=== PATIENT | male | born 1945 | race African-American/Black ===

== ENCOUNTER 2018-08-15 07:34 | Inpatient (IN) | payer MEDICARE, OTHER ==
[~2018-08-15] VITALS: Ht 180.3 cm; Wt 70.8 kg
[2018-08-15 07:35] VITALS: BP 122/57
[2018-08-15 08:15] LABS: ABSOLUTE LYMPHOCYTES 1.5 thou/uL (0.8-5.3); ABSOLUTE MONOCYTES 0.7 thou/uL (0.0-1.2); ABSOLUTE NEUTROPHILS 6.1 thou/uL (1.6-8.1); BASOPHILS 0.5 %; EOSINOPHILS 0.5 %; HEMATOCRIT 41.5 % (42.0-52.0); HEMOGLOBIN 13.3 gm/dL (14.0-18.0); LYMPHOCYTES 18.1 %; MCH 28.2 pg (26.0-34.0); MCHC 32.1 g/dL (28.0-37.0); MCV 87.8 fL (80.0-100.0); MONOCYTES 8.5 %; MPV 9.5 fl. (7.2-11.1); NUCLEATED RBCS 0 /100WBC; PLATELET COUNT* 255 thou/uL (150-400); POLYS 72.4 %; RBC 4.73 mil/uL (4.50-6.00); RDW-CV 14.3 % (10.5-14.5); WBC 8.4 thou/uL (4.0-11.0)
[2018-08-15 08:25] LABS: CALCIUM 9.2 mg/dL (8.5-10.1); CREATININE 0.9 mg/dL (0.6-1.3); POTASSIUM 4.7 mmol/L (3.5-5.1)
[2018-08-15 08:26] LABS: INR 1.1; PROTIME 11.2 Seconds (9.20-11.50)
[2018-08-15 08:30] LABS: ALBUMIN 3.2 g/dL (3.4-5.0); TOTAL BILIRUBIN 0.6 mg/dL (<0.1-1.0); TOTAL PROTEIN 7.2 g/dL (6.4-8.2)
[2018-08-15 09:20] LABS: URINE BILIRUBIN NEGATIVE (Negative); URINE BLOOD 2+ (Negative); URINE CLARITY CLEAR; URINE COLOR YELLOW; URINE GLUCOSE-RANDOM 3+ (Negative); URINE KETONES TRACE (Negative); URINE LEUKOCYTES-REFLEX NEGATIVE (Negative); URINE NITRITE-REFLEX NEGATIVE (Negative); URINE PROTEIN NEGATIVE (Negative); URINE SPECIFIC GRAVITY >= 1.030 (1.005-1.030); URINE UROBILINOGEN 0.2 E.U./dl (0.2-1.0)
[2018-08-15 09:26] LABS: BACTERIA-REFLEX 1-9 Few /HPF (None Seen); CASTS None Seen /LPF (None Seen); CRYSTALS None Seen /LPF (None Seen); MUCUS 4-6 Moderate strn/LPF (None Seen); SQUAMOUS 0-3 Few /LPF (0-3); URINE WBC-REFLEX 0-5 Rare /HPF (0-5)
[2018-08-15 13:00] VITALS: BP 134/61
[2018-08-15 13:01] VITALS: BP 128/54
--- NOTE | 2018-08-15 15:16 | EKG ---
[place] [address] ELECTROCARDIOGRAM REPORT Name: CADY SANDOVAL Room: [address] ADM IN [facility].#: [id number] Admission: 08/15/18 Attend Phys: Julius Marr MD Discharge: Date of : 41 Report #: [id number] THIS REPORT FOR: //name// [facility] ED Test Date: 2018-08-15 Test Time: 08:09:09 Pat Name: CADY SANDOVAL Department: Room: [facility] Gender: M Hone Operator: : 1945 Requested By: Migue Dunne Order Number: [id number] MD: Dakota Fitzgerald Measurements Intervals [employer] Rate: 76 P: 47 AL: 176 QRS: -1 QRSD: 88 T: 60 QT: 373 QTc: 420 Interpretive Statements Sinus rhythm No previous ECG available for comparison Electronically Signed On 08-15-2018 15:16:08 CDT by Dakota Fitzgerald [email or web address] <ELECTRONICALLY SIGNED> By: Dakota Fitzgerald MD, [facility] 08/15/18 1516 0809 8 Dakota Fitzgerald MD, FACC /EPI
--- NOTE | 2018-08-15 16:21 | NUR ---
PATIENT ADMITTED TO ROOM 304 FROM ER. ALERT AND ORIENTED X 4. C/O RIGHT ANKLE PAIN. PATIENT FALL RISK. BED ALARM ON FOR PATIENT SAFETY. NO SKIN BREAKDOWN NOTED. PATIENT WORK UP FOR TIA/CVA, NO DIFFICULTY WITH SWALLOW EVAL. FIRST DOSE OF ASPIRIN GIVEN PER ORDERS. PATIENT TO TRANSFER TO TELE ROOM 318 FOR STROKE PROTOCOL. NIH SCALE 5. ALL BELONGINGS SENT WITH PATIENT AND REPORT CALLED TO FERNY SIERRA.
[2018-08-15 18:00] VITALS: BP 143/62
--- NOTE | 2018-08-15 19:25 | NUR ---
PT RECEIVED FROM 3W AT 1600, ALERT AND ORIENTED X4. WENT FOR MRI AND US CAROTID, RECEIVED AT 1820. VSS. [facility] COMPLETED AND CHARTED. DAUGHTERS AT BEDSIDE. UPDATES PROVIDED.
[2018-08-15 19:40] VITALS: BP 138/63
[2018-08-16] VITALS: BP 127/56
--- NOTE | 2018-08-16 02:31 | NUR ---
RECIEVED REPORT AND ASSUMED CARE AT 1900. TECHNICIAN PREVENTATIVE MEDICINE IN PLACE. VITAL SIGNS STABLE. PT UP WITH ASSIST X 1 D/T RIGHT LEG WEAKNESS. HE DENIES ANY PAIN AT THIS TIME. ASSESSMENT COMPLETED AND CALL LIGHT WITHIN REACH. FALL PRECAUTIONS IN PLACE. HOURLY ROUNDING DONE AND ALL NEEDS MET. NURSING WILL CONTINUE TO MONITOR.
[2018-08-16 04:00] VITALS: BP 114/60
--- NOTE | 2018-08-16 06:25 | NUR ---
PT REFUSED MORNING LABS.
[2018-08-16 07:41] LABS: CHOLESTEROL 132 mg/dL (<200); HDL CHOLESTEROL 42 mg/dL (>40); LDL CHOLESTEROL 79 mg/dL (<100); SERUM ASSESSMENT Clear; TC:HDL 3.1 Ratio (Not establshd); TRIGLYCERIDE 57 mg/dL (<150); VLDL 11 mg/dL (<40)
[2018-08-16 08:00] VITALS: BP 121/60
--- NOTE | 2018-08-16 11:27 | NUR ---
Pt is A&O. Resides at [facility] in [place] and plans to return at ct. Pt states that he uses a walker for mobility. No other DME. Following.
--- NOTE | 2018-08-16 12:19 | NUR ---
ASSUMED PT CARE REPORT RECEIVED FROM NURSE. 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 TESTS DONE THIS AM. IV ABX GIVEN. PT ACCUCHECK 333 AT LUNCH TIME. [facility] [employer] CALLED TO REQUEST PT MEDICATION LIST. SPOKE WITH A NURSE WHO SAID THAT PT HAS BEEN REFUSING MEDICATIONS AT THE FACILITY SO PCP DC'D ALL PT MEDICATIONS. WAS MADE AWARE. WILL CONTINUE TO MONITOR PT
[2018-08-16 13:13] LABS: GLYCOHEMOGLOBIN (HGB A1C) 12.1 % (4.8-5.6)
[2018-08-16 14:36] VITALS: BP 127/62
--- NOTE | 2018-08-16 15:11 | 2DMMODE ---
[place] [address] 2 D/M-MODE ECHOCARDIOGRAM Name: CADY SANDOVAL Room: [address] IN [facility]#: [id number] Admission: 08/15/18 Attend Phys: Julius Marr, Discharge: Date of : 41 Date of Service: 08/16/18 1511 Report #: [id number] THIS REPORT FOR: //name// APPROVED REPORT Study performed: 08/16/2018 09:44:00 EXAM: Comprehensive 2D, Doppler, and color-flow Echocardiogram Patient Location: In-Patient Room #: 218 Status: routine BSA: 1.92 HR: 76 bpm BP: 128/54 mmHg Rhythm: NSR Other Information Study Quality: Good Indications CVA/TIA Echo Enhancing Agent Indication: Rule out Shunt Agent(s) / Amount(s) Used: Agitated Saline 10 cc 2D Dimensions IVSd: 11.91 (7-11mm) LVOT Diam: 22.52 (18-24mm) LVDd: 38.66 mm PWd: 9.46 (7-11mm) Ascending Ao: 33.52 (22-36mm) LVDs: 21.01 (25-40mm) Aortic Root: 31.37 mm Volumes Left Atrial Volume (Systole) LA ESV Index: 15.60 mL/m2 Aortic Valve AoV Peak Matteo.: 0.96 m/s AO Peak Gr.: 3.66 mmHg LVOT Max P.32 mmHg AO Mean Gr.: 2.32 mmHg LVOT Mean P.53 mmHg LVOT Max V: 0.91 m/s AO V2 VTI: 19.11 cm LVOT Mean V: 0.56 m/s JORDYN (VTI): 3.89 cm2 LVOT V1 VTI: 18.69 [place] [address] 2 D/M-MODE ECHOCARDIOGRAM Name: CADY SANDOVAL Room: [address] IN ..#: [id number] Admission: 08/15/18 Attend Phys: Julius Marr, Discharge: Date of : 41 Date of Service: 08/16/18 1511 Report #: [id number] Mitral Valve E/A Ratio: 0.50 MV Decel. Time: 364.66 ms MV E Max Matteo.: 0.43 m/s MV PHT: 105.75 ms MVA (PHT): 2.08 cm2 TDI E/Lateral E': 3.58 E/Medial E': 3.91 Medial E' Matteo.: 0.11 m/s Lateral E' Matteo.: 0.12 m/s Left Ventricle The left ventricle is normal size. There is normal LV segmental wall motion. There is normal left ventricular wall thickness. Left ventricular systolic function is normal. LVEF is 65-70%. Grade I - abnormal relaxation pattern. Right Ventricle The right ventricle is normal size. The right ventricular systolic function is normal. Atria The left atrium size is normal. Interatrial septum is intact without evidence of ASD or PFO. The right atrium size is normal. Aortic Valve Mild aortic valve sclerosis. No aortic regurgitation is present. There is no aortic valvular stenosis. Mitral Valve The mitral valve is normal in structure. There is no mitral valve regurgitation noted. No evidence of mitral valve stenosis. Tricuspid Valve The tricuspid valve is normal in structure. Trace tricuspid regurgitation. Unable to assess PA pressure. Pulmonic Valve Pulmonic valve is not well visualized. Great Vessels The aortic root is normal in size. IVC is not well [place] [address] 2 D/M-MODE ECHOCARDIOGRAM Name: JAIMECADY Sheridan Room: [address]#: [id number] Admission: 08/15/18 Attend Phys: Julius Marr, Discharge: Date of : 41 Date of Service: 08/16/18 1511 Report #: [id number] There is no pericardial effusion. <Conclusion> The left ventricle is normal size. There is normal left ventricular wall thickness. Left ventricular systolic function is normal. LVEF is 65-70%. Grade I - abnormal relaxation pattern. Interatrial septum is intact without evidence of ASD or PFO. Trace tricuspid regurgitation. <ELECTRONICALLY SIGNED> By: Jae Tobias MD, FACC 08/16/181510 10 10 Jae Tobias MD, FACC /INF
[2018-08-16 15:48] VITALS: BP 123/62
--- NOTE | 2018-08-16 17:11 | NUR ---
PT IS CONFUSED WHEN ASKED WHAT YEAR WE ARE IN . PT SAYS 2010. THEREFORE PT IS CONFUSED. DR CHAPARRO MADE AWARE OF PT REFUSAL TO TAKE METFORMIN OR INSULIN. DR CHAPARRO SAYS SINCE PT IS CONFUSED, HE DOES NOT HAVE A SAY IN MEDICATION ADMINISTRATION. SO INSULIN WAS GIVEN
--- NOTE | 2018-08-16 18:07 | NUR ---
pt now sitting in chair watching tv. chair alarm on. glucose lab came back at 294.
[2018-08-16 19:30] VITALS: BP 142/71
[2018-08-17] VITALS: BP 119/65
--- NOTE | 2018-08-17 02:27 | NUR ---
RECIEVED REPORT AND ASSUMED CARE AT 1900. 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 VITAL SIGNS STABLE. PT UP WITH ASSIST X 1. PT DENIES ANY PAIN AT THIS TIME. PT IMPULSIVE AT TIMES. ASSESSMENT COMPLETED. BED LOCKED, ALARM ON AND CALL LIGHT WITHIN REACH. FALL PRECAUTIONS IN PLACE. HOURLY ROUNDING DONE AND ALL NEEDS MET. NURSING WILL CONTINUE TO MONITOR.
[2018-08-17 08:00] VITALS: BP 119/58
[2018-08-17] MEDS ORDERED: METFORMIN HCL500 MG PO (12:37)
[2018-08-17] MEDS ORDERED: HUMALOG100 UNIT/1 SUBQ (12:38)
[2018-08-17] MEDS ORDERED: LOW DOSE ASPIRI81 M1 PO (12:38)
[2018-08-17] MEDS ORDERED: CEFUROXIME500 MG PO (12:40)
[2018-08-17 12:43] VITALS: BP 119/58
--- NOTE | 2018-08-17 13:30 | NUR ---
Pt discharging back to [facility] today. [facility] will fruit or nut picker and transport between 3-30pm today. Faxed dc orders. Chart copied. Nurse report number provided, . CM left VM for Pt's , Quynh. Updated Pt and nurse
[2018-08-17 14:27] VITALS: BP 112/67
--- NOTE | 2018-08-22 16:31 | CON ---
[address] [address] CONSULTATION Name: CADY SANDOVAL Room: [address] IN M.R.#: [id number] Admission: 08/15/18 Attend Phys: Julius Marr MD Discharge: 08/17/18 Date of : 41 Report #: [id number] THIS REPORT FOR: //name// CC: Julius Marr Juaquin Santiago DATE OF SERVICE: 08/16/2018 HISTORY OF PRESENT ILLNESS: This is a 72-year-old male patient who is a poor historian. He also becomes irritated very fast and therefore, the history is not very reliable. No family member is here. I talked to the nurses last night and as I understand from them, he had some altered mental status. He also has weakness in the lower extremities. However, he indicates the weakness in the right lower extremity is present for 40 years. 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 He does not think it is becoming any worst, but may have been like this since the onset. 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 REVIEW OF SYSTEMS: A 14-point review of system was carried out. He has a history of cystitis in the past and here also. He has been admitted with question of UTI. He does have a history of ischemic disease in the past. Records indicate he has been in and out of the [facility], but he does not provide any history in that regard. He denies any chest pain or respiratory difficulty, change in his vision, GI, , musculoskeletal, constitutional, dermatological, hematological, psychiatric, throat or allergic symptom associated with present symptomatology. PAST MEDICAL HISTORY: Positive for weakness in the right lower extremity of 40 years' duration. FAMILY HISTORY: According to him is negative for stroke. SOCIAL HISTORY: No family member is here, he says he does not smoke or drink any alcohol. PHYSICAL EXAMINATION: Indicates he is alert. His speech is intact. He does not know what month it is, what date it is. He becomes irritable during the cognitive evaluation. His memory and fund of knowledge is diminished. His cranial nerve examination 2-12 looks mostly unremarkable. He moved slightly the right lower extremity, but the left lower extremity he moves well. His position sense is intact on both sides. His reflexes are diminished on the right lower extremity and could not be elicited either in knee or in the ankle. On the left side, they are diminished, but still elicitable. His [place] [address] CONSULTATION Name: CADY SANDOVAL Room: [address] M.R.#: [id number] Admission: 08/15/18 Attend Phys: Julius Marr MD Discharge: 08/17/18 Date of : 41 Report #: [id number] He does not have any vqvpic-oc-haqw abnormality. There is no meningeal sign. There is no carotid bruit. He did not cooperate with the fundus examination. His pulses are difficult to feel. He has no edema, cyanosis or jaundice. His cardiac examination is unremarkable. No respiratory difficulty was noticed. He has no edema. His temperature is 97.8. His pulse is 68, respirations 18 and blood pressure is 114/60. LABORATORY DATA: His white count is 8.4. His sodium was normal, but his blood sugar is high. His MRI of the lumbar spine and head was reviewed, does not show any acute abnormality. IMPRESSION: This patient's altered mental status is probably because of his underlying dementia, which became worse with encephalopathy. He appeared to have significant dementia. I do not know about the leg weakness, but he insisted so. RECOMMENDATIONS: We will try to continue to reach some family. I will check a TSH and vitamin B12. We will see what PT, OT says and I will discuss this patient with you. Thank you very much for this referral. <ELECTRONICALLY SIGNED> By: Reuben Emerson MD 08/22/18 1631 1038 [id number] Emerson MD /nt
--- NOTE | 2018-08-22 16:31 | EEG ---
[address] [address] EEG STUDY REPORT Name: CADY SANDOVAL Room: [address] IN M.R.#: [id number] Admission: 08/15/18 Attend Phys: Julius Marr MD Discharge: 08/17/18 Date of : 41 Report #: [id number] THIS REPORT FOR: //name// CC: Julius Marr [facility] DATE OF SERVICE: 08/15/2018 This patient is being evaluated for altered mental status. TECHNIQUE: EEG was done by placing the electrode by standard 10-20 system of electrode placement. Both referential and sequential montages were used for recording. Background activity in this patient's EEG is about 8 Hz and 30 microvolts. It is a symmetrical activity. It is intermixed with theta range slowing on both sides. Photic stimulation was unremarkable. Throughout the record, no active epileptiform activity was noticed. IMPRESSION: This patient's EEG is intermixed with moderate amount of slowing on both sides. That is a nonspecific abnormality which can occur with dementia, encephalopathy, effect of psychotropic medication, etc. Clinical correlation is recommended. <ELECTRONICALLY SIGNED> By: Reuben Emerson MD 08/22/18 1631 [id number] [id number] Emerson MD /nt
== END 2018-08-17 16:34 | DRG 689 ==
LOC: M.ERS 07:34 → M.TBA-ER 10:01 → M.2W 10:01 → M.3W 13:17 → M.2W 16:15
PROVIDERS: Emergency Medicine; ADMIT Internal Medicine
DX: N30.01 Acute cystitis with hematuria (principal); G93.41 Metabolic encephalopathy; I27.0 Primary pulmonary hypertension; E11.65 Type 2 diabetes mellitus with hyperglycemia; M19.90 Unspecified osteoarthritis, unspecified site; F03.90 Unspecified dementia, unspecified severity, without behavioral disturbance, psychotic disturbance, mood disturbance, and anxiety; Z79.899 Other long term (current) drug therapy